=== PATIENT | female | born 1990 | race African-American/Black ===

== ENCOUNTER 2022-06-20 11:04 | Inpatient (IN) | payer MEDICAID, OTHER ==
[~2022-06-20 11:04] MED LIST: Bupivacaine 0.25% HCL 30 ML VIAL ONE
[2022-06-20] MEDS ORDERED: Zolpidem Tartrate 5 MG TAB PO PRN (19:23)
[2022-06-20] MEDS ORDERED: hydrALAZINE 20 MG/ML VIAL SLOW IVP PRN (19:23)
[2022-06-20] MEDS ORDERED: Promethazine HCl 25 MG/ML VIAL IM PRN (19:23)
[2022-06-20] MEDS ORDERED: Diphenoxylate HCl/Atropine Tablet PO PRN ×2 (19:23)
[2022-06-20] MEDS ORDERED: HYDROcodone/Acetaminophen 5/325 mg Tablet PO PRN ×2 (19:23)
[2022-06-20] MEDS ORDERED: Misoprostol 200 MCG TAB PR PRN (19:23)
[2022-06-20] MEDS ORDERED: Acetaminophen 500 MG TAB PO PRN (19:23)
[2022-06-20] MEDS ORDERED: Ondansetron PF 4 MG/2 ML Vial IVP PRN (19:23)
[2022-06-20] MEDS ORDERED: Butorphanol Tartrate 1 MG/ML VIAL SLOW IVP PRN (19:23)
[2022-06-20] MEDS ORDERED: Carboprost 250 MCG/ML AMP IM PRN (19:23)
[2022-06-20] MEDS ORDERED: Docusate 100 MG CAP PO PRN (19:23)
[2022-06-20] MEDS ORDERED: Lidocaine 1% (PF) 30 ML VIAL SC PRN (19:23)
[2022-06-20] MEDS ORDERED: Ibuprofen 800 MG TAB PO PRN (19:23)
[2022-06-20 20:10] VITALS: BMI 39.1
[2022-06-20] MEDS ORDERED: NS w/ Oxytocin 30 units 500 ML IV SCH ×3 (20:30)
[2022-06-20 21:03] LABS: Hemoglobin 11.1 g/dL (12.0-15.5); Mean Corpuscular HGB CONC 31.3 g/dL (32.0-36.0); Mean Corpuscular Hemoglobin 27.5 pg (27.0-33.0); Mean Corpuscular Volume 88.1 fl (81.6-98.3); Mean Platelet Volume 12.9 fl (7.4-10.4); Platelet Count 250 10x3/uL (150-450); RBC Distribution Width 15.9 % (11.5-14.5); Red Blood Cell (RBC) Count 4.03 10x6/uL (3.90-5.03); White Blood Cell (WBC) Count 9.3 10x3/uL (3.5-10.5)
[2022-06-20] MEDS: Lactated Ringer's 1,000 ML IV SCH (21:30)
[2022-06-21 00:31] LABS: HBSAg Index 0.15 S/CO (0-0.99); Hep B Surf Ag - L&D Non-Reactive S/CO (NonReactive)
[2022-06-21 00:32] LABS: Syphilis Antibody Nonreactive (Nonreactive); Syphilis Antibody Index 0.09 S/CO (<1.00 Non-Reactive)
[2022-06-21] MEDS ORDERED: Fentanyl 2 mcg/Bup 0.1% Cadd 100 ML ONE (01:07)
[2022-06-21] MEDS: Misoprostol 100 MCG TAB VAG SCH (01:52)
[2022-06-21] MEDS ORDERED: ePHEDrine Sulfate 50 MG/10 ML VIAL SLOW IVP PRN (01:56)
[2022-06-21] MEDS ORDERED: Moisturizing Cream (Eucerin) 113 GM JAR TOP PRN (01:56)
[2022-06-21] MEDS ORDERED: diphenhydrAMINE 50 MG/ML VIAL IVP PRN (01:56)
[2022-06-21] MEDS ORDERED: Acetaminophen 325 MG TAB PO PRN (01:56)
[2022-06-21] MEDS ORDERED: Ondansetron PF 4 MG/2 ML Vial IVP PRN ×2 (01:56→17:32)
[2022-06-21] MEDS ORDERED: Promethazine HCl 25 MG/ML VIAL IM PRN (01:56)
[2022-06-21] MEDS ORDERED: Naloxone HCl 0.4 mg/ml Vial IVP PRN ×2 (01:56)
[2022-06-21] MEDS ORDERED: Lactated Ringer's 500 ML IV PRN (01:56)
[2022-06-21] MEDS ORDERED: Communication Order-Pharmacy FS SCH (02:00)
[2022-06-21] MEDS ORDERED: Fentanyl 2 mcg/Bupivacaine 0.1% Cassette 100 ML EPIDURAL SCH (02:00)
[2022-06-21] MEDS ORDERED: Fentanyl 100 MCG/2 ML VIAL ONE ×2 (10:52→13:28)
[2022-06-21] MEDS ORDERED: Methylergonovine 0.2 MG/ML VIAL ONE (16:52)
[2022-06-21] MEDS ORDERED: Misoprostol 200 MCG TAB ONE (16:52)
[2022-06-21] MEDS ORDERED: Carboprost 250 MCG/ML AMP ONE (16:52)
[2022-06-21] MEDS ORDERED: Milk Of Magnesia 30 ML UDCUP PO PRN (17:32)
[2022-06-21] MEDS ORDERED: Benzocaine-Menthol 82.5 ML CAN TOP PRN (17:32)
[2022-06-21] MEDS ORDERED: hydrALAZINE 20 MG/ML VIAL SLOW IVP PRN (17:32)
[2022-06-21] MEDS ORDERED: diphenhydrAMINE 25 MG CAP PO PRN (17:32)
[2022-06-21] MEDS ORDERED: Misoprostol 200 MCG TAB VAG PRN (17:32)
[2022-06-21] MEDS ORDERED: HYDROcodone/Acetaminophen 5/325 mg Tablet PO PRN (17:32)
[2022-06-21] MEDS ORDERED: Preparation H Ointment 28 GM TUBE PR PRN (17:32)
[2022-06-21] MEDS ORDERED: Lanolin Ointment 7 GM TUBE TOP PRN (17:32)
[2022-06-21] MEDS ORDERED: Bisacodyl 10 MG SUPP PR PRN (17:32)
[2022-06-21] MEDS ORDERED: Boostrix 0.5 ML (Tdap) VIAL (>/=7 yrs of age) IM ONE (17:32)
[2022-06-21] MEDS ORDERED: Zolpidem Tartrate 5 MG TAB PO PRN (17:32)
[2022-06-21] MEDS ORDERED: NS w/ Oxytocin 30 units 500 ML IV SCH (17:45)
[2022-06-21] MEDS: Ibuprofen 800 MG TAB PO SCH (22:35)
[2022-06-21] MEDS: Docusate 100 MG CAP PO SCH (22:35)
[2022-06-22] MEDS: HYDROcodone/Acetaminophen 5/325 mg Tablet PO PRN ×2 (03:55→20:09)
[2022-06-22 04:16] LABS: Hemoglobin 8.7 g/dL (12.0-15.5); Mean Corpuscular HGB CONC 31.9 g/dL (32.0-36.0); Mean Corpuscular Hemoglobin 27.7 pg (27.0-33.0); Mean Corpuscular Volume 86.9 fl (81.6-98.3); Mean Platelet Volume 12.5 fl (7.4-10.4); Platelet Count 244 10x3/uL (150-450); RBC Distribution Width 15.6 % (11.5-14.5); Red Blood Cell (RBC) Count 3.14 10x6/uL (3.90-5.03)
[2022-06-22] MEDS: Ibuprofen 800 MG TAB PO SCH ×3 (06:18→21:55)
[2022-06-22] MEDS: Prenatal Vitamin 1 TAB PO SCH (08:50)
[2022-06-22] MEDS: Ferrous Sulfate 325 MG TAB PO SCH ×2 (08:50→17:55)
[2022-06-22] MEDS: Docusate 100 MG CAP PO SCH ×2 (08:50→21:55)
[2022-06-22] MEDS: Misoprostol 100 MCG TAB VAG SCH ×2 (16:27→16:28)
[2022-06-22] MEDS: Lactated Ringer's 1,000 ML IV SCH ×2 (16:28→16:29)
[2022-06-23] MEDS: Ibuprofen 800 MG TAB PO SCH ×2 (06:38→16:52)
[2022-06-23 07:17] VITALS: BP 106/73; TEMP 98
[2022-06-23] MEDS: Prenatal Vitamin 1 TAB PO SCH (08:45)
[2022-06-23] MEDS: Docusate 100 MG CAP PO SCH (08:45)
[2022-06-23] MEDS: Ferrous Sulfate 325 MG TAB PO SCH ×2 (08:45→16:53)
[2022-06-23] MEDS: HYDROcodone/Acetaminophen 5/325 mg Tablet PO PRN (16:55)
== END 2022-06-23 17:20 | disposition home or self-care (01) | DRG 806 ==
LOC: CSHLD 19:13 → CSHPP 06-21 21:10
PROVIDERS: ADMIT Obstetrics & Gynecology; ATTEND Obstetrics & Gynecology
PROC: 10E0XZZ Delivery of Products of Conception, External Approach (ICD-10-PCS; principal; 2022-06-21)
PROC: 10H07YZ Insertion of Other Device into Products of Conception, Via Natural or Artificial Opening (ICD-10-PCS; 2022-06-21)
PROC: 10907ZC Drainage of Amniotic Fluid, Therapeutic from Products of Conception, Via Natural or Artificial Opening (ICD-10-PCS; 2022-06-21)
DX: O36.63X0 Maternal care for excessive fetal growth, third trimester, not applicable or unspecified (principal); D62 Acute posthemorrhagic anemia; Z37.0 Single live birth; O76 Abnormality in fetal heart rate and rhythm complicating labor and delivery; O62.2 Other uterine inertia; O90.81 Anemia of the puerperium; Z3A.40 40 weeks gestation of pregnancy
CPT/HCPCS: 36415; 51702; 85027; 86780; 86850; 86900; 86901; 87340; J1200; J2590; J7120; S0020